=== PATIENT | male | born 1965 | race Caucasian/White ===

== ENCOUNTER 2023-07-25 13:37 | Emergency (ER) | payer MEDICARE, MEDICAID ==
[~2023-07-25] VITALS: Ht 182.9 cm; Wt 135.0 kg
[~2023-07-25 13:37] MED LIST: AMA1T PO; ASPI-500 PO; FENO134C21 PO; FINA5TAB11 PO; FLO0.4C PO; FURO40TA4 PO; LOSA50TA64 PO
[2023-07-25 15:27] VITALS: TEMP 97.7
[2023-07-25] MEDS ORDERED: HYDR-3965 PO (16:46)
[2023-07-25 17:17] VITALS: BP 101/81; PULSE 76; RESP 16; O2SAT 97
== END 2023-07-25 17:22 | disposition home or self-care (01) ==
LOC: ER 13:37
DX: S86.911A Strain of unspecified muscle(s) and tendon(s) at lower leg level, right leg, initial encounter (principal); I10 Essential (primary) hypertension; E11.9 Type 2 diabetes mellitus without complications; F12.90 Cannabis use, unspecified, uncomplicated; M25.561 Pain in right knee; M89.9 Disorder of bone, unspecified; Z79.82 Long term (current) use of aspirin; Z79.899 Other long term (current) drug therapy; X50.1XXA Overexertion from prolonged static or awkward postures, initial encounter; Y93.89 Activity, other specified; Y92.89 Other specified places as the place of occurrence of the external cause; Y99.8 Other external cause status
CPT/HCPCS: 29505; 73564; 99284

== ENCOUNTER 2023-07-26 06:32 | Emergency (ER) | payer MEDICARE, MEDICAID ==
[~2023-07-26] VITALS: Ht 182.9 cm; Wt 133.0 kg
[~2023-07-26 06:32] MED LIST changes: +HYDR-3965 PO
[2023-07-26] MEDS ORDERED: morphine 4 MG/ML inj SYRINge IV ONE (06:45)
[2023-07-26] MEDS ORDERED: ondansetron/PF 4mg/2ml inj IV ONE (06:45)
[2023-07-26] MEDS ORDERED: normal saline 1000ml 1,000 ML IV ONE (06:45)
[2023-07-26] MEDS ORDERED: potassium Cl 40MEQ/1/2NS 520ml 520 ML IV PRN (07:35)
[2023-07-26] MEDS ORDERED: magnesium 4gm in 100ml NS 100 ML IV PRN (07:35)
[2023-07-26] MEDS ORDERED: HYDROcodone/acetaminophen 5mg/325mg tablet PO PRN (07:35)
[2023-07-26] MEDS ORDERED: magnesium Cl slow-release 64mg tablet PO PRN (07:35)
[2023-07-26] MEDS ORDERED: magnesium 2GM in 50ml NS 50 ML IV PRN (07:35)
[2023-07-26] MEDS ORDERED: acetaminophen 325mg tablet PO PRN (07:35)
[2023-07-26] MEDS ORDERED: morphine 2 MG/ML inj. syringe IV PRN ×2 (07:35)
[2023-07-26] MEDS ORDERED: potassium Cl 20 mEq SR tablet PO PRN ×2 (07:35)
[2023-07-26] MEDS ORDERED: normal saline 1000ml 1,000 ML IV SCH (07:35)
[2023-07-26] MEDS ORDERED: ondansetron/PF 4mg/2ml inj IV PRN (07:35)
[2023-07-26] MEDS ORDERED: albuterol 2.5 MG/3 ML nebule NEB ONE (07:40)
[2023-07-26 07:59] LABS: ALANINE AMINOTRANSFERASE 27 U/L (12-78); ALBUMIN 3.4 G/DL (3.4-5.0); ALBUMIN/GLOBULIN RATIO 0.9 (1.1-1.5); ALKALINE PHOSPHATASE 49 IU/L (46-116); ANION GAP 7 (8-16); APTT 30 SECONDS (22-32); ASPARTATE AMINO TRANSFERASE 40 U/L (10-37); BILIRUBIN,TOTAL 0.4 MG/DL (0.1-1.0); BLOOD UREA NITROGEN 54 MG/DL (7-18); BUN/CREATININE RATIO 20.4 (10.0-20.0); CALCIUM 9.5 MG/DL (8.5-10.1); CHLORIDE 107 MMOL/L (99-107); CREATININE 2.65 MG/DL (0.60-1.10); GLUCOSE 98 MG/DL (70-104); INR 1.2 INR; POTASSIUM 5.8 MMOL/L (3.5-5.1); PROTHROMBIN TIME 12.4 SECONDS (9.0-12.0); SODIUM 135 MMOL/L (135-145); TOTAL CARBON DIOXIDE 21.1 MMOL/L (24-32); TOTAL PROTEIN 7.3 G/DL (6.4-8.2); eCRCL 33 ML/MIN; eGFR 25 ML/MIN
[2023-07-26] MEDS ORDERED: K and/or MAG REPLACEMENT MC SCH (08:00)
[2023-07-26] MEDS ORDERED: docusate sod 100mg capsule PO SCH (08:00)
[2023-07-26 08:08] VITALS: PULSE 65; RESP 14; O2SAT 100
[2023-07-26 08:12] LABS: MAGNESIUM 1.9 MG/DL (1.5-2.4)
[2023-07-26 08:14] VITALS: PULSE 65; RESP 18; O2SAT 100
[2023-07-26 09:35] LABS: BILIRUBIN,URINE NEGATIVE (Neg); CLARITY,URINE CLEAR (Clear); COLOR,URINE YELLOW (Yellow); GLUCOSE, URINE NEGATIVE (Neg); KETONES,URINE NEGATIVE (Neg); LEUKOCYTE ESTERASE ,URINE NEGATIVE (Neg); NITRITES, URINE NEGATIVE (Neg); OCCULT BLOOD,URINE SMALL (Neg); PH,URINE 5.5 (4.8-8.0); PROTEIN,URINE TRACE mg/dl (Neg); UROBILINOGEN,URINE 0.2 E.U/dL (0.2-1.0)
[2023-07-26 09:44] LABS: UA COLLECTION TYPE VOIDED
[2023-07-26 09:45] LABS: SQUAMOUS EPITHELIAL CELL,UR MODERATE /LPF (FEW)
[2023-07-26 09:46] LABS: BACTERIA,URINE FEW /HPF (Neg); HYALINE CASTS 0-3 /LPF (NEGATIVE); MUCUS STRANDS FEW /LPF (Neg)
[2023-07-26 09:47] LABS: FINE GRANULAR CAST 0-3 /LPF (NEGATIVE); RBC,URINE 0-2 /HPF (0-2); WBC,URINE 0-4 /HPF (0-4)
[2023-07-26 10:12] LABS: BASOPHILS % (AUTO) 0.3 % (0-1); EOSINOPHILS # (AUTO) 0.1 X10'3 (0-0.9); EOSINOPHILS % (AUTO) 0.9 % (0-6); HEMATOCRIT 34.2 % (42.0-52.0); HEMOGLOBIN 10.8 g/dl (14.0-17.9); LYMPHOCYTES # (AUTO) 1.5 X10'3 (1.1-4.8); MEAN CORPUSCULAR HEMOGLOBIN 27.7 PG (27.0-31.0); MEAN CORPUSCULAR HGB CONC 31.6 g/dL (33.0-36.5); MEAN CORPUSCULAR VOLUME 87.5 FL (78-98); MEAN PLATELET VOLUME 8.4 FL (7.4-10.4); MONOCYTES # (AUTO) 0.7 X10'3 (0-0.9); MONOCYTES % (AUTO) 5.6 % (2-12); NEUTROPHILS # (AUTO) 10.5 X10'3 (1.8-7.7); NEUTROPHILS % (AUTO) 81.2 % (42-75); PLATELET COUNT 238 X10'3 (140-440); RED BLOOD COUNT 3.91 X10'6 (4.70-6.10); RED CELL DISTRIBUTION WIDTH 14.7 % (11.5-14.5); WHITE BLOOD COUNT 12.9 X10'3 (4.5-11.0)
[2023-07-26 10:39] VITALS: BP 149/52; RESP 11; O2SAT 94
[2023-07-26 11:02] VITALS: TEMP 97.8
== END 2023-07-26 11:07 | disposition short-term general hospital (02) ==
LOC: ER 06:32 → UNDOADMIN 07:43 → ED HOLD 07:43 → UNDODISIN 11:00
DX: M84.451A Pathological fracture, right femur, initial encounter for fracture (principal); E11.9 Type 2 diabetes mellitus without complications; I10 Essential (primary) hypertension; N40.0 Benign prostatic hyperplasia without lower urinary tract symptoms; R91.8 Other nonspecific abnormal finding of lung field; J44.9 Chronic obstructive pulmonary disease, unspecified; Z90.5 Acquired absence of kidney; Z85.528 Personal history of other malignant neoplasm of kidney; Z79.82 Long term (current) use of aspirin; Z79.899 Other long term (current) drug therapy; Z79.84 Long term (current) use of oral hypoglycemic drugs
CPT/HCPCS: 29505; 36415; 71045; 73560; 73564; 80053; 81001; 82948; 83735; 85025; 85610; 85730; 86885; 86900; 86901; 93005; 94640; 96361; 96374; 96375; 96376; 99284; 99285; J2270; J2405; J7030; 94760; G0378